=== PATIENT | female | born 1995 | race Two or more races ===

== ENCOUNTER 2022-09-21 09:43 | Outpatient (CLI) | payer OTHER | END 2022-09-21 11:16 | disposition home or self-care (01) | LOC: PRENATAL 09:43 | PROVIDERS: ATTEND Obstetrics & Gynecology Maternal & Fetal Medicine | DX: O35.9XX0 Maternal care for (suspected) fetal abnormality and damage, unspecified, not applicable or unspecified (principal); O35.3XX0 Maternal care for (suspected) damage to fetus from viral disease in mother, not applicable or unspecified; Z3A.20 20 weeks gestation of pregnancy ==

== ENCOUNTER 2023-01-30 06:57 | Inpatient (IN) | payer OTHER ==
[~2023-01-30] VITALS: Ht 160 cm; Wt 64.9 kg
[2023-01-30] MEDS ORDERED: PRENATABS RX T1 EACH PO (08:31)
[2023-01-30] MEDS ORDERED: MAXFE CAPLET1 EAC1 (11:10)
[2023-01-30] MEDS ORDERED: DOCUSATE SODIU100 MG (11:10)
== END 2023-02-02 16:47 | disposition home or self-care (01) | DRG 807 ==
LOC: LDR 06:57 → OB/GYN 01-31 18:29
PROVIDERS: ADMIT Student in an Organized Health Care Education/Training Program; ATTEND Student in an Organized Health Care Education/Training Program
PROC: 3E0P7VZ Introduction of Hormone into Female Reproductive, Via Natural or Artificial Opening (ICD-10-PCS; 2023-01-30)
PROC: 10E0XZZ Delivery of Products of Conception, External Approach (ICD-10-PCS; principal; 2023-01-31)
PROC: 0KQM0ZZ Repair Perineum Muscle, Open Approach (ICD-10-PCS; 2023-01-31)
PROC: 3E033VJ Introduction of Other Hormone into Peripheral Vein, Percutaneous Approach (ICD-10-PCS; 2023-01-31)
DX: O70.1 Second degree perineal laceration during delivery (principal); Z37.0 Single live birth; O99.824 Streptococcus B carrier state complicating childbirth; Z3A.39 39 weeks gestation of pregnancy; Z20.822 Contact with and (suspected) exposure to COVID-19